=== PATIENT | male | born 1940 | race African-American/Black ===

== ENCOUNTER 2021-10-29 14:47 | Inpatient (IN) | payer OTHER, BC ==
[~2021-10-29] VITALS: Ht 167.6 cm; Wt 82.1 kg
--- NOTE | 2021-10-29 14:50 | NUR ---
Patient in bed 6 for PICC Line Removal. Patient came from [facility]. Patient is alert and oriented x4. Respiration even and unlabored. No shortness of breath. No c/o pain. Patient has double lumen picc line that was inserted August 11, 2021. Patient said that the PICC line was supposed to be removed September 20, 2021 and at [facility]. residential where patient explained that "tissue grew around the PICC line and it might be hard to remove the PICC line at the moment."
[2021-10-29 14:55] VITALS: BP_SYST 153
--- NOTE | 2021-10-29 14:55 | NUR ---
RECEIVED PT FROM MITCH OGDEN. PT HERE DUE PICC MALFUNTION, PICC LINE IS OLD AND UNABLE TO D/C, WILL NOT PULL OUT PER DR. ARANA. PT IS AAOX4. ON R/A, NORMAL S1S2 NOTED. DENIES N/V/D/C. PT HAS BILATERAL FOOT WOUNDS WRAPPED IN GAUZE AND A PICC LINE PLACED TO RIGHT UPPER CHEST. SIDERAILS UP X2.
--- NOTE | 2021-10-29 15:30 | NUR ---
IV CATH STARTED TO RFA 20G, LABS OBTAINED, COVID OBTAINED, URINE OBTAINED.
[2021-10-29 16:11] LABS: BASOPHILS % (AUTO) 0.1 % (0.0-2.0); EOSINOPHILS # (AUTO) 0.3 K/uL (0.0-0.4); EOSINOPHILS % (AUTO) 6.4 % (0.0-4.0); HEMATOCRIT 35.6 % (36-54); HEMOGLOBIN 11.8 g/dL (14.0-18.0); LYMPHOCYTES # (AUTO) 1.3 K/uL (1.0-5.5); LYMPHOCYTES % (AUTO) 26.8 % (20.5-51.5); MEAN CORPUSCULAR HEMOGLOBIN 30 pg (27-31); MEAN CORPUSCULAR HGB CONC 33 % (32-36); MEAN CORPUSCULAR VOLUME 90 fL (79.0-98.0); MONOCYTES # (AUTO) 0.5 K/uL (0.0-1.0); MONOCYTES % (AUTO) 11.6 % (1.7-9.3); NEUTROPHILS # (AUTO) 2.6 K/uL (1.8-7.7); NEUTROPHILS % (AUTO) 55.1 % (40.0-70.0); PLATELET COUNT (AUTO) 273 K/uL (130-430); RED BLOOD CELL COUNT(AUTO) 3.98 MIL/uL (4.2-6.2); RED CELL DISTRIBUTION WIDTH 14.9 % (9.0-15.0); WHITE BLOOD COUNT (AUTO) 4.7 K/uL (4.8-10.8)
[2021-10-29 16:32] LABS: ANION GAP 4 (5-15); CALCIUM 8.7 mg/dL (8.4-11.0); CHLORIDE 106 mmol/L (98-107); GLUCOSE 100 mg/dL (70-99); UREA NITROGEN, BLOOD 53 mg/dL (8-21)
[2021-10-29 16:37] LABS: ALANINE AMINOTRANSFERASE 24 U/L (12-78); ALBUMIN 2.8 g/dL (3.4-4.8); ASPARTATE AMINOTRANSFERASE 17 U/L (10-37); TOTAL BILIRUBIN 0.2 mg/dL (0.0-1.0)
[2021-10-29 17:23] LABS: POTASSIUM 7.3 mmol/L (3.5-5.1)
[2021-10-29] MEDS ORDERED: INSULIN REGULAR, HUMAN 10 UNITS/0.1 ML, 3 ML VIAL IVP ONE (18:00)
[2021-10-29] MEDS ORDERED: NACL 0.9% 1,000 ML IV ONE (18:00)
[2021-10-29] MEDS ORDERED: DEXTROSE 50% JECT 50 ML DISP.SYRIN IVP ONE (18:00)
--- NOTE | 2021-10-29 18:18 | NUR ---
PT k+= 7.2, INSULIN IVP GIVEN WITH D50, NS INITIATED.
--- NOTE | 2021-10-29 19:30 | NUR ---
BS 111, ENDORSED ALL CARE TO MITCH BERRY. ALL QUESTIONS AND CONCERNS ADDRESSED.
--- NOTE | 2021-10-29 19:35 | NUR ---
UNABLE TO COMPLETE MED REC AT THIS TIME DUE TO PATIENT'S CHART BEING LOCKED IN THE RECONCILE MEDICATION TAB. CHARGE JEAN SANCHEZ.
--- NOTE | 2021-10-29 19:39 | NUR ---
Admit bed requested Patient will be admitted to care of . Admitted to TELE unit. Diagnosis ACUTE RENAL FAILURE Inpatient (Yes or No) YES Observation (Yes or No) NO Orientation concerns or request close to nursing station (Yes or No) NO Covid Status PENDING On vent or bipap NO Isolation requirements NO Needs a sitter NO From Home (Yes or if No enter name of facility) [facility] Requires Dialysis (Yes or No) NO Med Rec Completed (Yes of No) PENDING
[2021-10-29] MEDS ORDERED: SODIUM POLYSTYRENE SULFONATE 15 GM/60 ML UDBTL PO ONE (19:45)
[2021-10-29 20:00] LABS: BILIRUBIN,URINE NEGATIVE (NEGATIVE); BLOOD, URINE NEGATIVE (NEGATIVE); CLARITY/URINE CLEAR (CLEAR); COLOR,URINE YELLOW (YELLOW); GLUCOSE,URINE NEGATIVE (NEGATIVE); KETONES,URINE NEGATIVE (NEGATIVE); LEUKOCYTE ESTERASE ,URINE NEGATIVE (NEGATIVE); NITRITE, URINE NEGATIVE (NEGATIVE); PH,URINE 5.5 (5.0-8.0); PROTEIN URINE NEGATIVE (NEGATIVE); UROBILINOGEN,URINE 0.2 (0.2-1.0)
[2021-10-29] MEDS: 0.45% NACL 1,000 ML IV SCH (20:07)
--- NOTE | 2021-10-29 20:49 | NUR ---
PT IS AA&OX4. SINHALA SPEAKING, AFEBRILE, DENIES PAIN. ALL DUE MEDS GIVEN ORDERED. W/ R AC 20G INTACT NO S/S PHLEBITIS NOR INFILTRATION. B & B CONTINENT & USES URINAL. LATEST k+= 6.1. DR ARANA AWARE. ALL NEEDS ANTICIPATED & ATTENDED TO.KEPT CLEAN & COMFORTABLE.
[2021-10-29 21:00] VITALS: BP_SYST 126
--- NOTE | 2021-10-29 21:17 | NUR ---
Patient will be admitted to care of Dr. palacios. Admitted to telemetry unit. Will go to room 102A. Belongings list completed. Complete and up to date summary report printed. SBAR report to be given TO MITCH BANDA at bedside with opportunity for questions.
--- NOTE | 2021-10-29 21:18 | NUR ---
ADMISSION NOTE Received patient from ER via tete, received report from Angie MEYER. Patient admitted with diagnosis of ACUTE RENAL FAILURE. Patient oriented to hospital routine, call light, toileting and safety-patient verbalized understanding.
--- NOTE | 2021-10-29 21:40 | NUR ---
MRSA collected and sent to lab.
--- NOTE | 2021-10-29 22:11 | NUR ---
at bedside Dr. Galvez here to see pt.
[2021-10-30] MEDS: ACETAMINOPHEN 325 MG TABLET PO PRN ×2 (00:16→20:41)
[2021-10-30 00:25] VITALS: BP_SYST 108
--- NOTE | 2021-10-30 02:10 | NUR ---
Rounds/Pericare Pt incontinent of large soft BM, pt was given Kayexalate in ED. Pericare/skin care provided, linens, gown changed.
--- NOTE | 2021-10-30 02:30 | NUR ---
Rounds/wound care Wound care to prudencio heels and R. latera/medial foot provided. Photos taken. Cleansed with NS, patted dry, applied hydrogel and covered with optifoam dressings. Pt tolerated well. Prudencio heels floated on heel protectors.
[2021-10-30] MEDS ORDERED: ASC500 PO (02:36)
[2021-10-30] MEDS ORDERED: AMIO100T4 PO (02:36)
[2021-10-30] MEDS ORDERED: ASA81 PO (02:36)
[2021-10-30] MEDS ORDERED: FERR-69 PO (02:36)
[2021-10-30] MEDS ORDERED: COR25 PO (02:36)
[2021-10-30] MEDS ORDERED: BISA10SU61 RC (02:36)
[2021-10-30] MEDS ORDERED: FINA5TAB3 PO (02:36)
[2021-10-30] MEDS ORDERED: TAMS-11 PO (03:18)
[2021-10-30] MEDS ORDERED: LYR25 PO (03:18)
[2021-10-30] MEDS ORDERED: HYDR100T25 PO (03:18)
[2021-10-30] MEDS ORDERED: MULT-1089 PO (03:18)
[2021-10-30] MEDS ORDERED: SENN8.6T19 PO (03:18)
[2021-10-30] MEDS ORDERED: INSU100V53 SUBCUT (03:18)
[2021-10-30] MEDS ORDERED: PANT20TA2 PO (03:18)
[2021-10-30] MEDS ORDERED: NA P133E41 RC (03:18)
[2021-10-30] MEDS ORDERED: GABA-529 PO (03:18)
[2021-10-30] MEDS ORDERED: MOM PO (03:18)
[2021-10-30] MEDS ORDERED: MILK OF MAGNESIA 30 ML UDC PO SCH (04:00)
[2021-10-30] MEDS ORDERED: SODIUM PHOSPHATE,MONO-DIBASIC 133 ML ENEMA RC PRN ×2 (04:00→09:00)
[2021-10-30] MEDS ORDERED: BISACODYL 10 MG/SUPPOSITORY RC PRN (04:00)
[2021-10-30] MEDS: PANTOPRAZOLE SODIUM 40 MG TAB PO SCH (06:10)
[2021-10-30] MEDS: GABAPENTIN 100 MG CAPSULE PO SCH ×3 (06:10→22:00)
--- NOTE | 2021-10-30 06:22 | NUR ---
Closing notes Pt alert, awake, resting in bed, no c/o pain or discomfort at this time. BS checked 111. IVF infusing at R. AC 20G clear and patent. Call light/items within reach. Bed low, locked, siderails up x3, bed alarm on. Safety maintained. To endorse to AM nurse.
--- NOTE | 2021-10-30 06:55 | NUR ---
CONSULTATION PAGED/CALLED Reason for Consultation: [] RENAL FAILURE Person Who was Notified: [] EVELYN Consulting Physician: [] Nathen GUARDADO Master Planner Specialty: [] TREY Ordering Physician: [] DR EARL
--- NOTE | 2021-10-30 06:59 | NUR ---
CONSULTATION PAGED/CALLED Reason for Consultation: [] REMOVAL OF PICC system admin Who was Notified: [] YARELY Consulting Physician: [] Nathen LUNA Power Tong Operator Specialty: [] GEN SURGEON Ordering Physician: [] DR EARL
--- NOTE | 2021-10-30 07:10 | NUR ---
Dr. Manzano called back re consult/Pt refused lab draw Informed MD re consult for PICC line double lumen removal unable to be removed by ER doctor. Pt refused lab draw this AM per laborer pullet farm. Endorsed to AM nurse.
[2021-10-30 08:00] VITALS: BP_SYST 109
--- NOTE | 2021-10-30 08:00 | NUR ---
OPENING NOTE: RECEIVED FROM STORAGE WORKER RN. AOX3. PATIENT EATING BREAKFAST. BREATHING EVEN AND NON LABORED TO RA. DENIES ANY DISCOMFORT AT THIS TIME. IV INFUSING WELL. FALL AND SAFETY MEASURES REINFORCED. CALL LIGHT WITHIN REACH.
[2021-10-30] MEDS ORDERED: MILK OF MAGNESIA 30 ML UDC PO PRN (09:00)
[2021-10-30] MEDS: CARVEDILOL 25 MG TABLET (COREG) PO SCH ×2 (10:25→20:42)
[2021-10-30] MEDS: MULTIVITAMINS TAB 1 TABLET PO SCH (10:26)
[2021-10-30] MEDS: hydrALAZINE HCL 25 MG TABLET PO SCH (10:26)
[2021-10-30] MEDS: AMIODARONE HCL 200 MG TABLET PO SCH ×2 (10:27→20:42)
[2021-10-30] MEDS: TAMSULOSIN HCL 0.4 MG CAP PO SCH (10:27)
[2021-10-30] MEDS: PREGABALIN 25 MG CAPSULE (LYRICA) PO SCH ×2 (10:27→20:40)
[2021-10-30] MEDS: FINASTERIDE 5 MG TABLET (PROSCAR) PO SCH (10:27)
[2021-10-30] MEDS: ASCORBIC ACID 500 MG TABLET PO SCH ×2 (10:27→20:43)
[2021-10-30] MEDS: ASPIRIN 81 MG TAB.CHEW PO SCH (10:27)
[2021-10-30] MEDS: 0.45% NACL 1,000 ML IV SCH ×2 (10:31→22:25)
--- NOTE | 2021-10-30 12:00 | NUR ---
RN NOTES: INCONTINENT CARE. NO S/S OF ACUTE DISTRESS NOTED. FALL AND SAFETY MEASURES PROVIDED. CALL LIGHT WITHIN REACH.
[2021-10-30] MEDS: INSULIN REGULAR, HUMAN 100 UNITS/ML, 3 ML VIAL (humuLIN R) SUBCUT PRN ×3 (12:08→20:48)
[2021-10-30 15:24] VITALS: BP_SYST 123
--- NOTE | 2021-10-30 19:20 | NUR ---
CLOSING NOTES: PATIENT RESTING IN BED. NO S/S OF ACUTE DISTRESS NOTED. IV INFUSING WELL. NEEDS MET THROUGHOUT SHIFT. ENDORSED TO PREPRESS SPECIALIST RN.
[2021-10-30 20:00] VITALS: BP_SYST 118
--- NOTE | 2021-10-30 20:10 | NUR ---
Opening notes Pt AAO, VSS. No s/s distress. IVF infusing at ordered rate R AC 20g clear and patent. R. chest central like dressing C/D/I. Awaiting for removal of central line. Prudencio heels maintained floated on heel boots dressing C/D/I. Bed low, locked, siderails up x3, alarm on. To monitor.
[2021-10-30] MEDS: SENNOSIDES 8.6 MG TABLET PO SCH (20:42)
[2021-10-30] MEDS: INSULIN GLARGINE 100 UNITS/ML, 10 ML VIAL SUBCUT SCH (20:48)
--- NOTE | 2021-10-30 22:45 | NUR ---
Tylenol Extra strength Pt states he takes Tylenon ES 2tabs. Dr. Galvez at nursing station and asked MD if we can change Regular Tylenol to Extra strength. Per MD ok to change it. Will carry out.
[2021-10-31 01:03] VITALS: BP_SYST 128
[2021-10-31] MEDS: PANTOPRAZOLE SODIUM 40 MG TAB PO SCH (06:13)
[2021-10-31] MEDS: GABAPENTIN 100 MG CAPSULE PO SCH ×3 (06:13→22:26)
[2021-10-31] MEDS: 0.45% NACL 1,000 ML IV SCH (06:15)
--- NOTE | 2021-10-31 06:16 | NUR ---
Closing notes Pt alert, awake, no s/s distress noted. VSS. No c/o pain at this time. New IV bag administered at ordered rate R. AC 20G no s/s infiltration. Prudencio feet/heels dressings C/D/I. Call light within reach/items. Bed low, locked, siderails up x3, alarm on. To endorse to AM nurse.
[2021-10-31 08:00] VITALS: BP_SYST 166
[2021-10-31 08:23] LABS: ALANINE AMINOTRANSFERASE 20 U/L (12-78); ALBUMIN 2.3 g/dL (3.4-4.8); ANION GAP 5 (5-15); ASPARTATE AMINOTRANSFERASE 16 U/L (10-37); CALCIUM 8.4 mg/dL (8.4-11.0); CHLORIDE 107 mmol/L (98-107); CREATININE 1.87 mg/dL (0.55-1.30); GLUCOSE 77 mg/dL (70-99); POTASSIUM 4.8 mmol/L (3.5-5.1); TOTAL BILIRUBIN 0.2 mg/dL (0.0-1.0); UREA NITROGEN, BLOOD 36 mg/dL (8-21)
[2021-10-31] MEDS: TAMSULOSIN HCL 0.4 MG CAP PO SCH (08:48)
[2021-10-31] MEDS: MULTIVITAMINS TAB 1 TABLET PO SCH (08:48)
[2021-10-31] MEDS: PREGABALIN 25 MG CAPSULE (LYRICA) PO SCH ×2 (08:48→20:29)
[2021-10-31] MEDS: ASPIRIN 81 MG TAB.CHEW PO SCH (08:48)
[2021-10-31] MEDS: hydrALAZINE HCL 25 MG TABLET PO SCH ×2 (08:49→22:26)
[2021-10-31] MEDS: ASCORBIC ACID 500 MG TABLET PO SCH ×2 (08:49→20:30)
[2021-10-31] MEDS: AMIODARONE HCL 200 MG TABLET PO SCH ×2 (08:50→20:30)
[2021-10-31] MEDS: CARVEDILOL 25 MG TABLET (COREG) PO SCH ×2 (08:51→20:30)
[2021-10-31] MEDS: FINASTERIDE 5 MG TABLET (PROSCAR) PO SCH (09:02)
[2021-10-31 11:25] VITALS: BP_SYST 154
[2021-10-31 12:08] LABS: BASOPHILS # (AUTO) 0.1 K/uL (0.0-0.2); BASOPHILS % (AUTO) 1.1 % (0.0-2.0); EOSINOPHILS # (AUTO) 0.4 K/uL (0.0-0.4); EOSINOPHILS % (AUTO) 7.8 % (0.0-4.0); HEMOGLOBIN 10.4 g/dL (14.0-18.0); LYMPHOCYTES # (AUTO) 1.4 K/uL (1.0-5.5); LYMPHOCYTES % (AUTO) 29.8 % (20.5-51.5); MEAN CORPUSCULAR HEMOGLOBIN 30 pg (27-31); MEAN CORPUSCULAR HGB CONC 33 % (32-36); MEAN CORPUSCULAR VOLUME 89 fL (79.0-98.0); MONOCYTES # (AUTO) 0.6 K/uL (0.0-1.0); NEUTROPHILS # (AUTO) 2.2 K/uL (1.8-7.7); NEUTROPHILS % (AUTO) 48.3 % (40.0-70.0); PLATELET COUNT (AUTO) 226 K/uL (130-430); RED BLOOD CELL COUNT(AUTO) 3.47 MIL/uL (4.2-6.2); RED CELL DISTRIBUTION WIDTH 14.8 % (9.0-15.0); WHITE BLOOD COUNT (AUTO) 4.5 K/uL (4.8-10.8)
--- NOTE | 2021-10-31 12:11 | NUR ---
Dietitian Recommendations: *continue renal diet per MD order *suggest to provide Glucerna BID to supplement diet, encourage patient to sip between meals *suggest Da BID to support healing *continue vitamin C to promote healing Please refer to nutrition assessment for details. MAITE, NO
[2021-10-31 15:28] VITALS: BP_SYST 149
[2021-10-31 19:50] VITALS: BP_SYST 157
--- NOTE | 2021-10-31 19:50 | NUR ---
PM ASSESSMENT; -Pt is a/ox4,laying in bed comfortably. Pt denies any chest pain,sob,or any acute distress. IV site of rt f/a patent, no s/s any infiltration noted, infusing w/ 1/2 NS @ 75ml/hr. Prudencio heels and feet dry wounds with blue shi applied. Keep pt cleaned and dry. Discussed poc, all safety measures, pt verbalized understanding. Pt is able to show good return demonstration how to use call light when needs assistance or if experiencing any chest pain,pain,sob,or any acute distress. Fall precaution in place. Bed alarmed, side rails x3, call light w/in reach. Cont to monitor pt. Addendum: 10/31/21 at 2336 by [employer], MITCH RN LATE ENTRY-ADDITIONAL NOTES; PT HAS CENTRAL LINE OF RT CHEST WALL,NO WORKING, AWAITING FOR SURGEON TO BE REMOVE ON 11/03/21.
[2021-10-31] MEDS: SENNOSIDES 8.6 MG TABLET PO SCH (20:31)
[2021-10-31] MEDS: INSULIN GLARGINE 100 UNITS/ML, 10 ML VIAL SUBCUT SCH (20:37)
[2021-10-31] MEDS: INSULIN REGULAR, HUMAN 100 UNITS/ML, 3 ML VIAL (humuLIN R) SUBCUT PRN (20:38)
[2021-10-31] MEDS: ACETAMINOPHEN 500 MG TABLET PO PRN (20:49)
--- NOTE | 2021-10-31 22:26 | NUR ---
ROUNDS; -Pt awakes, lying in bed comfortably. Pt denies any chest pain,pain,sob,or any acute distress. Gave all 2200 routine po medications, OP=645/64, 60. Fall precaution in place. Bed alarmed, side rails x3, call light w/in reach. Cont to monitor pt.
--- NOTE | 2021-11-01 | NUR ---
ROUNDS; -Pt is sleep in bed comfortably. No s/s any acute distress noted. Fall precaution in place. Bed alarmed, side rails x3, call light w/in reach. Cont to monitor pt.
[2021-11-01 00:04] VITALS: BP_SYST 163
--- NOTE | 2021-11-01 02:03 | NUR ---
ROUNDS; -Pt is asleep in bed comfortably. No s/s any acute distress noted. Fall precaution in place. Bed alarmed, side rails x3, call light w/in reach. Cont to monitor pt.
[2021-11-01] MEDS: hydrALAZINE HCL 25 MG TABLET PO SCH ×3 (06:00→22:05)
--- NOTE | 2021-11-01 06:24 | NUR ---
CLOSING NOTES; -Pt is resting in bed comfortably. No s/s any chest pain,sob,pain,or any acute distress noted. IVF infusing well. Pt's condition stable entire shift. Bed alarmed, call light w/in reach, side rails x2. Will endorse to next nurse to cont care.
[2021-11-01] MEDS: PANTOPRAZOLE SODIUM 40 MG TAB PO SCH (06:47)
[2021-11-01] MEDS: GABAPENTIN 100 MG CAPSULE PO SCH ×4 (06:47→22:05)
[2021-11-01] MEDS: 0.45% NACL 1,000 ML IV SCH ×3 (06:51→22:22)
--- NOTE | 2021-11-01 06:55 | NUR ---
NOTES; BLOOD SUGAR=77 -Pt is asymptomatic, no s/s any hypoglycemic effect. Offered snack, juice, and crackers, pt just wanted Ari crackers only, gave upon pt's request. Will endorse to day shift nurse to cont care and monitor blood sugar.
--- NOTE | 2021-11-01 07:30 | NUR ---
OPENING NOTE RECEIVED SBAR FROM SALES VICE PRESIDENT NURSE. PT IN BED RESPIRATIONS EVEN, REGULAR, AND NON-LABORED. BED IS LOCKED AND AT LOW POSITION. IV RUNNING ORDERED, IV SITE REMAIN PATENT AND CLEAN. DENIES OF ANY PAIN/DISCOMFORT.
[2021-11-01 07:46] LABS: ANION GAP 5 (5-15); CALCIUM 8.3 mg/dL (8.4-11.0); CHLORIDE 105 mmol/L (98-107); CREATININE 1.67 mg/dL (0.55-1.30); GLUCOSE 109 mg/dL (70-99); POTASSIUM 4.3 mmol/L (3.5-5.1); UREA NITROGEN, BLOOD 27 mg/dL (8-21)
[2021-11-01 08:00] VITALS: BP_SYST 143
[2021-11-01] MEDS: FINASTERIDE 5 MG TABLET (PROSCAR) PO SCH (08:27)
[2021-11-01] MEDS: PREGABALIN 25 MG CAPSULE (LYRICA) PO SCH ×2 (08:27→20:51)
[2021-11-01] MEDS: ASPIRIN 81 MG TAB.CHEW PO SCH (08:27)
[2021-11-01] MEDS: TAMSULOSIN HCL 0.4 MG CAP PO SCH (08:28)
[2021-11-01] MEDS: AMIODARONE HCL 200 MG TABLET PO SCH ×2 (08:28→20:53)
[2021-11-01] MEDS: ASCORBIC ACID 500 MG TABLET PO SCH ×2 (08:29→20:51)
[2021-11-01] MEDS: MULTIVITAMINS TAB 1 TABLET PO SCH (08:29)
[2021-11-01] MEDS: CARVEDILOL 25 MG TABLET (COREG) PO SCH ×2 (08:29→20:52)
--- NOTE | 2021-11-01 10:27 | NUR ---
TRANSFER OF ROOM MOVED PATIENT AND BELONGINGS TO [facility].
[2021-11-01 11:44] VITALS: BP_SYST 148
[2021-11-01 17:06] VITALS: BP_SYST 160
[2021-11-01 19:00] VITALS: BP_SYST 151
--- NOTE | 2021-11-01 19:00 | NUR ---
I received patients report from outgoing nurse alert and oriented x 4 .has 0.45% NS ruining @ 75cc via right peripheral line.Vitals done BPs 151/54 HR 61 SPO2-98%.pt c/o pain to lower extremities 5/10
--- NOTE | 2021-11-01 19:24 | NUR ---
CLOSING NOTE PROVIDED SBAR TO VENDOR MANAGER NURSE. PT IN BED RESPIRATIONS EVEN, REGULAR, AND NON-LABORED. IV RUNNING ORDERED. IV SITE REMAIN PATENT AND CLEAN. NO IV RELATED COMPLICATIONS NOTED. PT DENIES ANY PAIN OR DISCOMFORT. BED IS LOCKED AND AT LOW POSITION. ENDORSED CARE.
[2021-11-01 20:00] VITALS: BP_SYST 150
[2021-11-01] MEDS: ACETAMINOPHEN 500 MG TABLET PO PRN (20:54)
[2021-11-01] MEDS: SENNOSIDES 8.6 MG TABLET PO SCH (20:59)
[2021-11-01] MEDS: INSULIN GLARGINE 100 UNITS/ML, 10 ML VIAL SUBCUT SCH (21:00)
--- NOTE | 2021-11-02 | NUR ---
states relieved pain after treatment .resting in bed
[2021-11-02 01:04] VITALS: BP_SYST 169
[2021-11-02 06:00] VITALS: BP_SYST 136
[2021-11-02] MEDS: hydrALAZINE HCL 25 MG TABLET PO SCH ×3 (06:14→21:15)
[2021-11-02] MEDS: PANTOPRAZOLE SODIUM 40 MG TAB PO SCH (06:28)
--- NOTE | 2021-11-02 07:50 | NUR ---
SBAR REPORT RECEIVED FROM RN, ALL CARES ASSUMED.
[2021-11-02 08:56] LABS: ANION GAP 6 (5-15); CALCIUM 8.4 mg/dL (8.4-11.0); CHLORIDE 105 mmol/L (98-107); CREATININE 1.64 mg/dL (0.55-1.30); GLUCOSE 112 mg/dL (70-99); POTASSIUM 4.6 mmol/L (3.5-5.1); UREA NITROGEN, BLOOD 24 mg/dL (8-21)
[2021-11-02] MEDS: ASCORBIC ACID 500 MG TABLET PO SCH ×2 (09:50→21:16)
[2021-11-02] MEDS: MULTIVITAMINS TAB 1 TABLET PO SCH (09:51)
[2021-11-02] MEDS: AMIODARONE HCL 200 MG TABLET PO SCH ×2 (09:51→21:14)
[2021-11-02] MEDS: CARVEDILOL 25 MG TABLET (COREG) PO SCH ×2 (09:52→21:16)
[2021-11-02] MEDS: TAMSULOSIN HCL 0.4 MG CAP PO SCH (09:52)
[2021-11-02] MEDS: PREGABALIN 25 MG CAPSULE (LYRICA) PO SCH ×2 (09:52→21:15)
[2021-11-02] MEDS: ASPIRIN 81 MG TAB.CHEW PO SCH (09:52)
[2021-11-02] MEDS: FINASTERIDE 5 MG TABLET (PROSCAR) PO SCH (09:53)
[2021-11-02 11:28] VITALS: BP_SYST 145
[2021-11-02] MEDS: INSULIN REGULAR, HUMAN 100 UNITS/ML, 3 ML VIAL (humuLIN R) SUBCUT PRN ×2 (12:34→21:29)
[2021-11-02] MEDS: GABAPENTIN 100 MG CAPSULE PO SCH ×2 (14:34→21:16)
[2021-11-02 15:32] VITALS: BP_SYST 140
[2021-11-02 16:00] VITALS: BP_SYST 143
[2021-11-02] MEDS: 0.45% NACL 1,000 ML IV SCH ×2 (16:56→23:51)
--- NOTE | 2021-11-02 19:15 | NUR ---
OPENING NOTES Patient resting in bed - no s/s pain or distress noted. Respirations even and unlabored - head of bed elevated. IV site patent - no s/s redness, infection, or infiltration. Bed locked and in lowest position. Call light within reach - bed alarm on.
[2021-11-02 20:00] VITALS: BP_SYST 159
--- NOTE | 2021-11-02 20:00 | NUR ---
Patient had BM, cleaned by SPEECH COMMUNICATION PROFESSOR at this time
[2021-11-02] MEDS: SENNOSIDES 8.6 MG TABLET PO SCH (21:00)
[2021-11-02] MEDS: ACETAMINOPHEN 500 MG TABLET PO PRN (21:15)
[2021-11-02] MEDS: INSULIN GLARGINE 100 UNITS/ML, 10 ML VIAL SUBCUT SCH (21:27)
[2021-11-03] VITALS: BP_SYST 136
--- NOTE | 2021-11-03 | NUR ---
Patient now NPO at this time for procedure tomorrow.
[2021-11-03] MEDS: hydrALAZINE HCL 25 MG TABLET PO SCH ×3 (06:00→22:27)
[2021-11-03] MEDS: GABAPENTIN 100 MG CAPSULE PO SCH ×3 (06:00→22:24)
[2021-11-03] MEDS: PANTOPRAZOLE SODIUM 40 MG TAB PO SCH (06:41)
[2021-11-03 07:28] LABS: ANION GAP 5 (5-15); CALCIUM 8.4 mg/dL (8.4-11.0); CHLORIDE 106 mmol/L (98-107); CREATININE 1.58 mg/dL (0.55-1.30); GLUCOSE 73 mg/dL (70-99); POTASSIUM 4.6 mmol/L (3.5-5.1); UREA NITROGEN, BLOOD 26 mg/dL (8-21)
[2021-11-03 08:00] VITALS: BP_SYST 158
[2021-11-03] MEDS: PREGABALIN 25 MG CAPSULE (LYRICA) PO SCH ×2 (09:00→22:24)
[2021-11-03] MEDS: MULTIVITAMINS TAB 1 TABLET PO SCH (09:00)
[2021-11-03] MEDS: TAMSULOSIN HCL 0.4 MG CAP PO SCH (09:00)
[2021-11-03] MEDS: AMIODARONE HCL 200 MG TABLET PO SCH ×2 (09:00→22:26)
[2021-11-03] MEDS: FINASTERIDE 5 MG TABLET (PROSCAR) PO SCH (09:00)
[2021-11-03] MEDS: ASPIRIN 81 MG TAB.CHEW PO SCH (09:00)
[2021-11-03] MEDS: CARVEDILOL 25 MG TABLET (COREG) PO SCH ×2 (09:00→22:27)
[2021-11-03] MEDS: ASCORBIC ACID 500 MG TABLET PO SCH ×2 (09:00→22:24)
[2021-11-03 09:15] LABS: PROTHROMBIN TIME 10.4 SECS (9.5-12.5)
[2021-11-03 11:30] VITALS: BP_SYST 159
[2021-11-03 15:31] VITALS: BP_SYST 167
[2021-11-03] MEDS: INSULIN REGULAR, HUMAN 100 UNITS/ML, 3 ML VIAL (humuLIN R) SUBCUT PRN (17:19)
[2021-11-03 20:00] VITALS: BP_SYST 144
[2021-11-03] MEDS: SENNOSIDES 8.6 MG TABLET PO SCH (22:26)
[2021-11-03] MEDS: 0.45% NACL 1,000 ML IV SCH (22:33)
[2021-11-03] MEDS: INSULIN GLARGINE 100 UNITS/ML, 10 ML VIAL SUBCUT SCH (22:40)
[2021-11-03] MEDS: ACETAMINOPHEN 500 MG TABLET PO PRN (22:46)
[2021-11-04] VITALS: BP_SYST 145
[2021-11-04] MEDS: GABAPENTIN 100 MG CAPSULE PO SCH ×3 (05:51→22:14)
[2021-11-04] MEDS: PANTOPRAZOLE SODIUM 40 MG TAB PO SCH (05:53)
[2021-11-04] MEDS: hydrALAZINE HCL 25 MG TABLET PO SCH ×3 (05:53→22:15)
[2021-11-04 07:35] VITALS: BP_SYST 145
--- NOTE | 2021-11-04 07:35 | NUR ---
OPEN NOTE Patient in bed resting. A/Ox 4 Andorran speaking. No pain, no sob, no distress noted at this time. IV to CHEO 20G patent on infusion pump. Central line malfunction to r subclavian line to be removed surgically today here at [place] or other [facility]. Patient on bed rest and unable to ambulate. Patient is oriented to room. Call light is within reach and all needs met at this time. Will continue to monitor.
[2021-11-04 07:40] LABS: ANION GAP 5 (5-15); CALCIUM 8.7 mg/dL (8.4-11.0); CHLORIDE 108 mmol/L (98-107); CREATININE 1.61 mg/dL (0.55-1.30); GLUCOSE 107 mg/dL (70-99); POTASSIUM 4.4 mmol/L (3.5-5.1); UREA NITROGEN, BLOOD 28 mg/dL (8-21)
[2021-11-04] MEDS: ASCORBIC ACID 500 MG TABLET PO SCH ×2 (08:40→20:52)
[2021-11-04] MEDS: MULTIVITAMINS TAB 1 TABLET PO SCH (08:42)
[2021-11-04] MEDS: FINASTERIDE 5 MG TABLET (PROSCAR) PO SCH (08:43)
[2021-11-04] MEDS: ASPIRIN 81 MG TAB.CHEW PO SCH (08:43)
[2021-11-04] MEDS: TAMSULOSIN HCL 0.4 MG CAP PO SCH (08:43)
[2021-11-04] MEDS: CARVEDILOL 25 MG TABLET (COREG) PO SCH ×2 (08:44→20:50)
[2021-11-04] MEDS: PREGABALIN 25 MG CAPSULE (LYRICA) PO SCH ×2 (08:44→20:52)
[2021-11-04] MEDS: 0.45% NACL 1,000 ML IV SCH (08:45)
[2021-11-04] MEDS: AMIODARONE HCL 200 MG TABLET PO SCH ×2 (08:45→20:52)
[2021-11-04] MEDS: INSULIN REGULAR, HUMAN 100 UNITS/ML, 3 ML VIAL (humuLIN R) SUBCUT PRN (11:55)
--- NOTE | 2021-11-04 12:10 | NUR ---
PATIENT ROUNDS Patient in bed resting. No pain, no sob, no distress noted at this time. IV to CHEO 20G patent on infusion pump. Wounds to bilateral feet dressing changed and pictures taken. Call light is within reach and all needs met at this time. Bed is flores in lowest position. Will continue to monitor.
[2021-11-04 12:43] VITALS: BP_SYST 147
--- NOTE | 2021-11-04 12:55 | NUR ---
Discharge Planning: DCP faxed pt referral to [facility] [phone] DCP to follow up. Addendum: 11/05/21 at 1029 by Lainey Wilder DP WRONG PATIENT
--- NOTE | 2021-11-04 15:30 | NUR ---
Jennifer Manzano to inquire on surgical plan. Spoke with Belinda awaiting call back.
--- NOTE | 2021-11-04 16:10 | NUR ---
PATIENT ROUNDS Patient in bed resting. No pain, no sob, no distress noted at this time. IV to CHEO 20G patent on infusion pump. Call light is within reach and all needs met at this time. Bed is flores in lowest position. Will continue to monitor.
[2021-11-04 16:23] VITALS: BP_SYST 146
--- NOTE | 2021-11-04 18:49 | NUR ---
CLOSING NOTE Patient in bed resting. A/Ox 4 Cape Verdean speaking. No pain, no sob, no distress noted at this time. IV to CHEO 20G patent on infusion pump. Central line malfunction to r subclavian line to be removed surgically but Surgeon MD Manzano has not called back after 2 pages (1 by myself, the other by Charge nurse Candy). Patient on bed rest and unable to ambulate. Patient is oriented to room. Call light is within reach and all needs met at this time. Bed is locked in lowest position. Will endorse to automatic packer operator nurse.
[2021-11-04 20:00] VITALS: BP_SYST 176
--- NOTE | 2021-11-04 20:25 | NUR ---
opening note Received patient awake, resting in bed. No distress, respirations even and unlabored, he is on room air. IVF infusing via IV to RFA. Meal tray at bedside and he has eaten 75%. Bed is locked in lowest position, side rails up 3x, bed alarm on and call light w/in reach.
[2021-11-04] MEDS: SENNOSIDES 8.6 MG TABLET PO SCH ×2 (20:51→21:00)
--- NOTE | 2021-11-04 20:53 | NUR ---
Meds Scheduled meds given. Patient took all meds in cup at one time and swallowed w/water. Reviewed side effects and he verbalized understanding.
[2021-11-04] MEDS: ACETAMINOPHEN 500 MG TABLET PO PRN (21:06)
--- NOTE | 2021-11-04 21:10 | NUR ---
Tylenol, Bed bath Patient requesting Tylenol, he reports moderate pain to his legs/feet. Patient uses urinal, yet does has accidental spill on linen. Bed bath given, changed all linens.
[2021-11-04] MEDS: INSULIN GLARGINE 100 UNITS/ML, 10 ML VIAL SUBCUT SCH (22:06)
--- NOTE | 2021-11-04 22:06 | NUR ---
Accucheck FSB result was 101 mg/dL, scheduled Lantus given along with a snack (1/2 turkey sandwich).
[2021-11-05] VITALS: BP_SYST 160
[2021-11-05] MEDS: 0.45% NACL 1,000 ML IV SCH ×2 (00:50→11:38)
[2021-11-05 01:00] VITALS: BP_SYST 138
--- NOTE | 2021-11-05 01:00 | NUR ---
IVF, rounds Hung new bag of 1/2 Normal saline. Infusing well, no sign of infiltration noted. Repeated B/P assessment and it has decreased to normal range.
--- NOTE | 2021-11-05 06:31 | NUR ---
Accucheck: 64mg/dL Patient is awake, alert and able to swallow, will give orange juice.
[2021-11-05] MEDS: GABAPENTIN 100 MG CAPSULE PO SCH ×3 (06:39→21:03)
[2021-11-05] MEDS: PANTOPRAZOLE SODIUM 40 MG TAB PO SCH (06:40)
[2021-11-05] MEDS: hydrALAZINE HCL 25 MG TABLET PO SCH ×3 (06:40→20:59)
--- NOTE | 2021-11-05 06:58 | NUR ---
Accucheck: 72mg;dL
[2021-11-05 07:35] VITALS: BP_SYST 145
--- NOTE | 2021-11-05 07:35 | NUR ---
OPEN NOTE Patient in bed resting. A/Ox 4 Finnish speaking. No pain, no sob, no distress noted at this time. IV to CHEO 20G patent on infusion pump. Central line malfunction to r subclavian line to be removed surgically, will be following up with Surgeon today. Patient on bed rest and unable to ambulate. Patient is oriented to room. Call light is within reach and all needs met at this time. Will continue to monitor.
[2021-11-05 08:16] LABS: ANION GAP 7 (5-15); CALCIUM 8.5 mg/dL (8.4-11.0); CHLORIDE 107 mmol/L (98-107); GLUCOSE 63 mg/dL (70-99); POTASSIUM 4.3 mmol/L (3.5-5.1); UREA NITROGEN, BLOOD 26 mg/dL (8-21)
[2021-11-05] MEDS: PREGABALIN 25 MG CAPSULE (LYRICA) PO SCH ×2 (09:12→21:02)
[2021-11-05] MEDS: ASCORBIC ACID 500 MG TABLET PO SCH ×2 (09:12→21:00)
[2021-11-05] MEDS: TAMSULOSIN HCL 0.4 MG CAP PO SCH (09:13)
[2021-11-05] MEDS: MULTIVITAMINS TAB 1 TABLET PO SCH (09:13)
[2021-11-05] MEDS: FINASTERIDE 5 MG TABLET (PROSCAR) PO SCH (09:14)
[2021-11-05] MEDS: AMIODARONE HCL 200 MG TABLET PO SCH ×2 (09:14→21:02)
[2021-11-05] MEDS: ASPIRIN 81 MG TAB.CHEW PO SCH (09:15)
[2021-11-05] MEDS: CARVEDILOL 25 MG TABLET (COREG) PO SCH ×2 (09:15→21:00)
--- NOTE | 2021-11-05 10:07 | NUR ---
MD MANZANO CALL Spoke with Belinda of MD office who stated that MD Manzano spoke to OR dept today and told them that surgery will happen today. Place a call to OR and spoke to Alla who stated that it will be done today. We will keep patient NPO starting now and OR checklist will be done right now. Patient was made aware.
--- NOTE | 2021-11-05 12:20 | NUR ---
PATIENT ROUNDS Patient in bed resting. No pain, no sob, no distress noted at this time. IV to CHEO 20G patent on infusion pump. Patient is NPO and will be having surgery later today to remove central line. All surgery prep forms are signed and ready for OR nurse to pick up driver. Call light is within reach and all needs met at this time. Bed is locked in lowest position. Will continue to monitor.
--- NOTE | 2021-11-05 12:37 | NUR ---
DISCHARGE PLANNING Called & spoke with Dr Galvez, gave ph order to dc back to SNF after Central line removed. Spoke with pt at bedside & agrees with plan to dc back to [facility] today after central line removed. States he will call & notify family of plan to dc back to [facility]. Faxed order/pt info to [facility]. Updated dc planner/scheduler.
[2021-11-05 12:49] VITALS: BP_SYST 133
--- NOTE | 2021-11-05 13:53 | NUR ---
CENTRAL LINE REMOVAL Patient was just wheeled out to have central line removed in GI OR room. Patient stable with no pain, no sob, no distress. Will wait for him to come back from OR.
--- NOTE | 2021-11-05 14:54 | NUR ---
PATIENT RETURN Patient just returned to the floor from the removal of the central line. No pain, no distress, no sob. Patient seems stable and able to make needs known. Call light within reach and bed is locked in lowest position. Will continue to monitor.
[2021-11-05] MEDS: ACETAMINOPHEN 500 MG TABLET PO PRN ×2 (15:01→21:17)
[2021-11-05 15:37] VITALS: BP_SYST 148
--- NOTE | 2021-11-05 16:00 | NUR ---
DC PLANNING Per Any DC regional planner patient is awaiting for a bed at [facility]. Once bed is available patient will be DC.
--- NOTE | 2021-11-05 18:51 | NUR ---
CLOSING NOTE Patient in bed resting. A/Ox 4 Bhutanese speaking. No pain, no sob, no distress noted at this time. IV to CHEO 20G patent on infusion pump. Central line removed earlier today surgically. Patient on bed rest and unable to ambulate. Patient is oriented to room. Call light is within reach and all needs met at this time. Bed is locked in lowest position. Will endorse to shift leader nurse.
--- NOTE | 2021-11-05 19:44 | NUR ---
RECEIVED PT LYING IN BED, NO DISTRESS NOTED, DENIES PAIN. IVF INFUSING TO RT AC SITE CDI. DRSG TO RT UPPER CHEST CDI. LESIONS NOTED TO BLE, DRSG TO RT LATER GREAT TOE CDI. FAMILY MEMBER AT BEDSIDE. PT IS UPSET EXPRESSING HE WAS SUPPOSE TO BE DISCHARGED TODAY AND WAS NOT. EXPLAINED TO PT AND FAMILY MEMBER REASON FOR CANCELLED DISCHARGE TODAY. Addendum: 11/06/21 at 0411 by [facility] MITCH Espinoza RN 0200: PT REFUSED TO DO DRSG CHANGES AT THIS TIME. Addendum: 11/06/21 at 0604 by Jhonny Espinoza RN RN 0545: PT IS UPSET DUE TO NOT GETTING GOOD SLEEP. PT STATES "WHY DO YOU ALL KEEP WAKING ME UP" PT HAD TO BE CLEANED, REPOSITIONED, IVF BAG CHANGED, BLOOD SUGAR CHECKED, AND HAS REFUSED DRSG CHANGES. PT STATED, "I'M NOT GOING TO LET YOU DO THAT RIGHT NOW." ALSO HIS NEIGHBORS NURSE HAS GONE INTO THE ROOM. WILL ATTEMPT AT 0630 TO GIVE MEDICATIONS, REPOSITION, CHECK BLOOD SUGAR, AND DO DRSG CHANGES.
[2021-11-05 20:35] VITALS: BP_SYST 154
[2021-11-05] MEDS: SENNOSIDES 8.6 MG TABLET PO SCH (21:02)
[2021-11-05] MEDS: INSULIN GLARGINE 100 UNITS/ML, 10 ML VIAL SUBCUT SCH (21:18)
[2021-11-06 00:28] VITALS: BP_SYST 135
[2021-11-06] MEDS: 0.45% NACL 1,000 ML IV SCH ×2 (04:08→14:06)
[2021-11-06] MEDS: GABAPENTIN 100 MG CAPSULE PO SCH ×2 (06:50→14:05)
[2021-11-06] MEDS: hydrALAZINE HCL 25 MG TABLET PO SCH ×2 (06:50→14:06)
[2021-11-06] MEDS: PANTOPRAZOLE SODIUM 40 MG TAB PO SCH (06:50)
--- NOTE | 2021-11-06 06:50 | NUR ---
we offered me and the nurse for hygiene pt refused stated he don't want to be cleaned and his fine.
--- NOTE | 2021-11-06 06:59 | NUR ---
0645: PT REFUSED LAB DRAW, PT STATED "I DON'T NEED THAT I'M LEAVING TODAY.+
--- NOTE | 2021-11-06 07:35 | NUR ---
Received report from material handler 1st shift RN and assumed patient care.
[2021-11-06 08:00] VITALS: BP_SYST 135
[2021-11-06] MEDS: FINASTERIDE 5 MG TABLET (PROSCAR) PO SCH (09:00)
[2021-11-06] MEDS: AMIODARONE HCL 200 MG TABLET PO SCH (09:01)
[2021-11-06] MEDS: ASPIRIN 81 MG TAB.CHEW PO SCH (09:01)
[2021-11-06] MEDS: MULTIVITAMINS TAB 1 TABLET PO SCH (09:02)
[2021-11-06] MEDS: TAMSULOSIN HCL 0.4 MG CAP PO SCH (09:02)
[2021-11-06] MEDS: ASCORBIC ACID 500 MG TABLET PO SCH (09:02)
[2021-11-06] MEDS: PREGABALIN 25 MG CAPSULE (LYRICA) PO SCH (09:02)
[2021-11-06] MEDS: CARVEDILOL 25 MG TABLET (COREG) PO SCH (09:02)
--- NOTE | 2021-11-06 09:27 | NUR ---
Discharge Planning: JOCY spoke with Lainey at [facility] [phone], a rapid covid was requested pending [facility] bed. JOCY made CM aware. Addendum: 11/06/21 at 1214 by Lainey Wilder DP JOCY arranged transport with [facility] [phone] BLS 3:30pm to [facility] [phone] Rm [id number]. JOCY made CM and nurse aware and pt packet taken to nurse station.
[2021-11-06] MEDS: INSULIN REGULAR, HUMAN 100 UNITS/ML, 3 ML VIAL (humuLIN R) SUBCUT PRN (11:47)
[2021-11-06 12:27] VITALS: BP_SYST 143
[2021-11-06 12:42] VITALS: BP_SYST 135
--- NOTE | 2021-11-06 13:14 | NUR ---
[facility], no questions noted at the moment, and will reinforce if needed throughout the shift. Approx. time is 1530, patient's belongings are at bedside, no other complications noted at the moment, will reinforce if needed throughout the shift.
[2021-11-06] MEDS: ACETAMINOPHEN 500 MG TABLET PO PRN (14:12)
--- NOTE | 2021-11-06 14:17 | NUR ---
Patient requested to remove peripheral IV, educated the patient about the need for an IV placement due to emergencies, but patient does not want to be poked again for an IV placement. Will inform Dr. Galvez about the situation, and patient refused for another placement of IV despite patient being GCS 15. No additional questions or new orders noted at the moment, IV fluids are now on hold.
[2021-11-06 15:27] VITALS: BP_SYST 127
[2021-11-06 16:16] VITALS: BP_SYST 130
--- NOTE | 2021-11-06 16:27 | NUR ---
AMS ready for curing pickling packer at bedside, provided bedside report, and informed patient about the transfer over to [facility]. No further questions noted at the moment, and no complications noted at the moment. Patient's SBP is 150s, however patient does not state he is in pain, or any other complications and is ready to be discharged. Discharge instructions, belongings at bedside, no further questions noted at the moment. Will reinforce if needed throughout the shift.
== END 2021-11-06 16:50 | DRG 314 ==
LOC: SED 14:47 → STU 19:31
PROVIDERS: ADMIT Family Medicine; ATTEND Family Medicine
PROC: 05PYX3Z Removal of Infusion Device from Upper Vein, External Approach (ICD-10-PCS; principal; 2021-11-05 13:30)
DX: T80.211A Bloodstream infection due to central venous catheter, initial encounter (principal); N17.0 Acute kidney failure with tubular necrosis; E44.0 Moderate protein-calorie malnutrition; B99.9 Unspecified infectious disease; Y83.8 Other surgical procedures as the cause of abnormal reaction of the patient, or of later complication, without mention of misadventure at the time of the procedure; I12.9 Hypertensive chronic kidney disease with stage 1 through stage 4 chronic kidney disease, or unspecified chronic kidney disease; N18.9 Chronic kidney disease, unspecified; L89.899 Pressure ulcer of other site, unspecified stage; E11.22 Type 2 diabetes mellitus with diabetic chronic kidney disease; E11.42 Type 2 diabetes mellitus with diabetic polyneuropathy; D64.9 Anemia, unspecified; Z20.822 Contact with and (suspected) exposure to COVID-19; E11.51 Type 2 diabetes mellitus with diabetic peripheral angiopathy without gangrene; Z79.82 Long term (current) use of aspirin; Y92.89 Other specified places as the place of occurrence of the external cause; Z95.0 Presence of cardiac pacemaker; Z68.29 Body mass index [BMI] 29.0-29.9, adult
CPT/HCPCS: 36415; 71045; 76770; 80048; 80053; 81003; 82962; 84132; 85025; 85610-TC; 85730-TC; 86886; 86900; 86901; 87040; 87081; 93005; 96361; 96374; 96375; 99285; G0378; J1815